=== PATIENT | female | born 1940 | race Caucasian/White ===

== ENCOUNTER 2019-07-22 16:46 | Inpatient (IN) ==
[2019-07-22] MEDS ORDERED: 0.9 % Sodium Chloride 1,000 ML IVC ONE (17:12)
[2019-07-22] MEDS ORDERED: Ondansetron 4 MG/2 ML VIAL IVP ONE (17:12)
[2019-07-22 17:27] LABS: Bilirubin,Urine Small (Negative); Blood,Urine Large (Negative); Clarity,Urine Cloudy (Clear); Color,Urine Yellow (Yellow); Glucose,Urine (UA) Normal (Normal); Ketones,Urine Trace mg/dL (Negative); Leukocyte Esterase,Urine Large (Negative); Nitrite,Urine Negative (Negative); PH,Urine 5.5 pH Units (5.0-8.0); Protein,Urine 100 mg/dL (Neg-Trace); Specific Gravity,Urine 1.025 (1.010-1.025); Urobilinogen,Urine Normal (Normal)
[2019-07-22 17:29] LABS: Bacteria,Urine Many per hpf (None-Few); RBC,Urine TNTC per hpf (0-3); Squamous Epithelial Cell,Urine Few per lpf (None-Few); WBC,Urine TNTC per hpf (0-3)
[2019-07-22 17:33] LABS: Basophils # 0.1 K/mcL (0.0-0.2); Basophils % 0.4 %; Eosinophils # 0.1 K/mcL (0.0-0.6); Eosinophils % 0.3 %; Hemoglobin 12.7 g/dL (11.5-15.4); Immature Granulocytes % 0.8 % (0-4); Lymphocytes # 0.8 K/mcL (0.6-4.6); Lymphocytes % 2.5 %; Mean Corpuscular HGB Conc 33.4 g/dL (31.6-35.5); Mean Corpuscular Volume 89.6 fL (83.0-100.0); Mean Platelet Volume 10.6 fL (9.4-12.4); Monocytes % 3.1 %; Platelet Count 304 K/mcL (140-400); Red Blood Count 4.24 M/mcL (3.82-4.97); Red Cell Distribution Width 13.5 % (11.5-14.5); Segmented Neutrophils % 92.9 %
[2019-07-22 17:41] LABS: White Blood Count 31.2 K/mcL (4.3-11.1)
[2019-07-22 17:42] LABS: Anisocytosis 1+ (Not Present)
[2019-07-22 18:01] LABS: Albumin 3.7 g/dL (3.5-5.7); Bilirubin,Total 0.5 mg/dL (0.3-1.0); Calcium 8.9 mg/dL (8.6-10.3); Potassium 4.2 mEq/L (3.5-5.1)
[2019-07-22 18:02] LABS: Albumin/Globulin Ratio 1.1 (1.1-2.2); Globulin 3.3 g/dL (2.4-3.5)
[2019-07-22 18:05] LABS: VBG HCO3 24 mEq/L (21-27); VBG PCO2 43 mmHg (41-51); VBG PH 7.36 pH Units (7.32-7.42); VBG PO2 36 mmHg (25-50)
[2019-07-22] MEDS ORDERED: cloNIDine HCL 0.1 MG TABLET PO PRN (19:23)
[2019-07-22] MEDS ORDERED: *HR* HYDROcodone/Acet 5/325 mg TABLET PO PRN (19:23)
[2019-07-22] MEDS ORDERED: Triamcinolone Acet 0.1% CRM 15 GM TUBE TP PRN (19:23)
[2019-07-22] MEDS ORDERED: Naloxone 0.4 MG/ML INJ IVP PRN (19:23)
[2019-07-22] MEDS ORDERED: 0.9 % Sodium Chloride 1,000 ML IVC SCH (19:30)
[2019-07-22] MEDS ORDERED: ATENOLOL 100 MG PO SCH (21:00)
[2019-07-22] MEDS ORDERED: amLODIPine 5 MG TABLET PO SCH ×2 (21:00)
[2019-07-22] MEDS ORDERED: CICLOPIROX OLAMINE APPL TP SCH (21:00)
[2019-07-22] MEDS: amLODIPine 5 MG TABLET PO SCH (22:08)
[2019-07-22] MEDS: 0.9 % Sodium Chloride 1,000 ML IVC SCH (23:37)
[2019-07-23] MEDS: 0.9 % Sodium Chloride 1,000 ML IVC SCH ×3 (02:08→19:48)
[2019-07-23 05:43] LABS: Basophils # 0.1 K/mcL (0.0-0.2); Basophils % 0.3 %; Eosinophils # 0.7 K/mcL (0.0-0.6); Eosinophils % 3.8 %; Immature Granulocytes % 0.4 % (0-4); Lymphocytes # 1.4 K/mcL (0.6-4.6); Lymphocytes % 7.4 %; Mean Corpuscular HGB Conc 33.3 g/dL (31.6-35.5); Mean Corpuscular Hemoglobin 30.1 pg (28.0-33.3); Mean Corpuscular Volume 90.4 fL (83.0-100.0); Mean Platelet Volume 10.7 fL (9.4-12.4); Monocytes # 0.8 K/mcL (0.0-1.3); Monocytes % 4.3 %; Neutrophils # 16.2 K/mcL (1.6-8.9); Platelet Count 236 K/mcL (140-400); Red Blood Count 3.65 M/mcL (3.82-4.97); Red Cell Distribution Width 13.6 % (11.5-14.5); Segmented Neutrophils % 83.8 %; White Blood Count 19.3 K/mcL (4.3-11.1)
[2019-07-23 05:58] LABS: Calcium 7.7 mg/dL (8.6-10.3)
[2019-07-23 05:59] LABS: Albumin 3.1 g/dL (3.5-5.7); Albumin/Globulin Ratio 1.1 (1.1-2.2); Bilirubin,Direct 0.1 mg/dL (0.0-0.2); Bilirubin,Indirect 0.2 mg/dL (0.0-1.0); Bilirubin,Total 0.3 mg/dL (0.3-1.0); Globulin 2.7 g/dL (2.4-3.5); Total Protein 5.8 g/dL (6.4-8.9)
[2019-07-23] MEDS ORDERED: *HR* Enoxaparin 40 MG/0.4 ML SYRINGE SQ SCH (06:00)
[2019-07-23] MEDS: Multivit/Ca/Min/Fe/FA 1 TAB TABLET PO SCH (08:08)
[2019-07-23] MEDS: *HR* Glimepiride 2 MG TABLET PO SCH (08:08)
[2019-07-23] MEDS: Aspirin Enteric Coated 81 MG Tablet PO SCH (08:08)
[2019-07-23] MEDS: atenoloL 50 MG TABLET PO SCH (08:08)
[2019-07-23] MEDS: (B2/Vits A,C,E/Lut/Zeaxanth/Min [Icaps Tablet] 1 TAB) PO SCH (08:09)
[2019-07-23 08:37] LABS: Estimated Average Glucose 143 mg/dl
[2019-07-23] MEDS ORDERED: allopurinoL 300 MG TABLET PO SCH (09:00)
[2019-07-23] MEDS ORDERED: Vitamin B Complex/Vit C/Vit E 1 EACH TABLET PO SCH (09:00)
[2019-07-23] MEDS ORDERED: Cholecalciferol (D-3) 1,000 UNIT (25MCG) TABLET PO SCH (09:00)
[2019-07-23] MEDS ORDERED: atenoloL 50 MG TABLET PO SCH (09:00)
[2019-07-23] MEDS: amLODIPine 5 MG TABLET PO SCH (19:48)
[2019-07-24] MEDS: 0.9 % Sodium Chloride 1,000 ML IVC SCH ×2 (04:47→14:57)
[2019-07-24] MEDS: *HR* Enoxaparin 30 MG/0.3 ML SYRINGE SQ SCH (04:48)
[2019-07-24] MEDS: *HR* Glimepiride 2 MG TABLET PO SCH (08:13)
[2019-07-24] MEDS: Aspirin Enteric Coated 81 MG Tablet PO SCH (08:14)
[2019-07-24] MEDS: Multivit/Ca/Min/Fe/FA 1 TAB TABLET PO SCH (08:14)
[2019-07-24] MEDS: (B2/Vits A,C,E/Lut/Zeaxanth/Min [Icaps Tablet] 1 TAB) PO SCH (08:14)
[2019-07-24] MEDS: atenoloL 50 MG TABLET PO SCH (08:14)
[2019-07-24] MEDS: amLODIPine 5 MG TABLET PO SCH (20:02)
[2019-07-24] MEDS: Loratadine 10 MG TABLET PO PRN (20:03)
[2019-07-25] MEDS: *HR* Enoxaparin 30 MG/0.3 ML SYRINGE SQ SCH (04:50)
[2019-07-25] MEDS: Loratadine 10 MG TABLET PO PRN (04:50)
[2019-07-25 05:23] LABS: Basophils # 0.1 K/mcL (0.0-0.2); Basophils % 0.7 %; Eosinophils # 0.8 K/mcL (0.0-0.6); Eosinophils % 7.3 %; Hemoglobin 12.1 g/dL (11.5-15.4); Immature Granulocytes % 1.2 % (0-4); Lymphocytes # 1.6 K/mcL (0.6-4.6); Lymphocytes % 15.4 %; Mean Corpuscular HGB Conc 32.7 g/dL (31.6-35.5); Mean Corpuscular Hemoglobin 29.7 pg (28.0-33.3); Mean Corpuscular Volume 90.9 fL (83.0-100.0); Mean Platelet Volume 10.7 fL (9.4-12.4); Monocytes # 0.6 K/mcL (0.0-1.3); Monocytes % 5.7 %; Neutrophils # 7.4 K/mcL (1.6-8.9); Platelet Count 342 K/mcL (140-400); Red Blood Count 4.07 M/mcL (3.82-4.97); Red Cell Distribution Width 13.9 % (11.5-14.5); Segmented Neutrophils % 69.7 %; White Blood Count 10.7 K/mcL (4.3-11.1)
[2019-07-25 05:40] LABS: Albumin 3.6 g/dL (3.5-5.7); Albumin/Globulin Ratio 1.1 (1.1-2.2); Bilirubin,Direct 0.1 mg/dL (0.0-0.2); Bilirubin,Indirect 0.2 mg/dL (0.0-1.0); Bilirubin,Total 0.3 mg/dL (0.3-1.0); Calcium 8.5 mg/dL (8.6-10.3); Globulin 3.3 g/dL (2.4-3.5); Potassium 3.9 mEq/L (3.5-5.1); Total Protein 6.9 g/dL (6.4-8.9)
[2019-07-25] MEDS: atenoloL 50 MG TABLET PO SCH (07:59)
[2019-07-25] MEDS: Multivit/Ca/Min/Fe/FA 1 TAB TABLET PO SCH (07:59)
[2019-07-25] MEDS: Aspirin Enteric Coated 81 MG Tablet PO SCH (07:59)
[2019-07-25] MEDS: *HR* Glimepiride 2 MG TABLET PO SCH (07:59)
[2019-07-25] MEDS: (B2/Vits A,C,E/Lut/Zeaxanth/Min [Icaps Tablet] 1 TAB) PO SCH (08:01)
[2019-07-25 09:19] VITALS: BP 164/80
== END 2019-07-25 09:33 | disposition home or self-care (01) | DRG 690 ==
LOC: INPGRE 16:46 → EMEROOGRE 16:46 → INPGRE 20:13
PROVIDERS: ADMIT Family Medicine; ATTEND Family Medicine